=== PATIENT | male | born 1975 | race Hispanic/Latino ===

== ENCOUNTER 2019-06-24 04:27 | Emergency (ER) | payer BC, MEDICARE ==
[2019-06-24 05:16] LABS: #Eosinphils 0.2 thou/uL (0.0-0.7); #Lymphocytes 2.1 thou/uL (1.20-3.40); #Monocytes 0.6 thou/uL (0.11-0.59); #Neutrophils 3.7 thou/uL (1.40-6.50); %Basophils 0.7 % (0.0-1.0); %Eosinophils 3.1 % (0.0-10.0); %Lymphocytes 32.1 % (21.0-51.0); %Monocytes 8.4 % (0.0-10.0); %Neutrophils 55.7 % (42.0-75.0); Hemoglobin 13.9 g/dL (14.0-18.0); Mean Corpuscular HGB CONC 33.6 g/dL (32.0-36.0); Mean Corpuscular Hemoglobin 31.6 pg (27.0-31.0); Mean Corpuscular Volume 94.1 fL (78.0-98.0); Mean Platelet Volume 7.6 fL (7.4-10.4); Platelet Count 219 thou/uL (130-400); RBC Distribution Width 11.3 % (11.5-14.5); Red Blood Cell (RBC) Count 4.41 mill/uL (4.70-6.10); White Blood Cell (WBC) Count 6.6 thou/uL (4.8-10.8)
[2019-06-24 05:29] LABS: ALT (SGPT) 53 U/L (8-55); AST (SGOT) 34 U/L (5-34); Albumin 4.2 g/dL (3.5-5.0); Alkaline Phosphatase 74 U/L (40-110); Anion Gap 13 mmol/L (10-20); BUN (Urea Nitrogen) 15 mg/dL (8.9-20.6); Bilirubin, Total 0.3 mg/dL (0.2-1.2); Calc. Creatinine Clearance 0 mL/min (70-130); Calcium 9.1 mg/dL (7.8-10.44); Carbon Dioxide 25 mmol/L (22-29); Chloride 106 mmol/L (98-107); Estimated GFR-MDRD 84; Globulin 2.6 g/dL (2.4-3.5); Glucose 105 mg/dL (70-105); Protein, Total 6.8 g/dL (6.0-8.3); Sodium 140 mmol/L (136-145)
--- NOTE | 2019-06-24 08:11 | RAD ---
PORTABLE CHEST: Date: 06/24/19 An AP portable film at 0504 hours is compared with the 06/18/12 study. The heart remains normal in size and the lungs are clear. There is no infiltrate, effusion, or vascul ar congestion. Mediastinum appears normal. IMPRESSION: No acute thoracic findings. POS: HOME
== END 2019-06-24 05:54 | disposition home or self-care (01) ==
LOC: BURERS 04:27
DX: M25.511 Pain in right shoulder (principal); I10 Essential (primary) hypertension; Z79.899 Other long term (current) drug therapy
CPT/HCPCS: 36415; 71045; 80053; 84484; 85025; 85379; 93005

== ENCOUNTER 2023-08-16 14:05 | Emergency (ER) | payer BC, SELFPAY ==
[2023-08-16 14:51] LABS: #Basophils 0.1 thou/uL (0.0-0.2); #Eosinphils 0.2 thou/uL (0.0-0.7); #Lymphocytes 1.8 thou/uL (1.20-3.40); #Monocytes 0.4 thou/uL (0.11-0.59); %Basophils 0.8 % (0.0-1.0); %Eosinophils 2.8 % (0.0-10.0); %Lymphocytes 27.3 % (21.0-51.0); %Monocytes 6.9 % (0.0-10.0); %Neutrophils 62.2 % (42.0-75.0); Hematocrit 44.9 % (42.0-52.0); Hemoglobin 15.1 g/dL (14.0-18.0); Mean Corpuscular HGB CONC 33.6 g/dL (32.0-36.0); Mean Corpuscular Hemoglobin 31.6 pg (27.0-31.0); Mean Corpuscular Volume 94.1 fl (78.0-98.0); Mean Platelet Volume 8.3 fL (7.4-10.4); Platelet Count 226 10x3/uL (130-400); RBC Distribution Width 10.8 % (11.5-14.5); Red Blood Cell (RBC) Count 4.77 mill/uL (4.70-6.10); White Blood Cell (WBC) Count 6.4 10x3/uL (4.8-10.8)
[2023-08-16] MEDS ORDERED: Metoclopramide HCl 10 MG/2 ML VIAL ONE (14:56)
[2023-08-16 15:03] LABS: ALT (SGPT) 30 U/L (8-55); AST (SGOT) 27 U/L (5-34); Albumin 4.5 g/dL (3.5-5.0); Alkaline Phosphatase 54 U/L (40-110); Anion Gap 14 mmol/L (10-20); BUN (Urea Nitrogen) 12 mg/dL (8.9-20.6); Bilirubin, Total 0.6 mg/dL (0.2-1.2); Calc. Creatinine Clearance 0 mL/min (70-130); Calcium 8.8 mg/dL (7.8-10.44); Carbon Dioxide 23 mmol/L (22-29); Chloride 104 mmol/L (98-107); Estimated GFR 95; Globulin 2.8 g/dL (2.4-3.5); Glucose 86 mg/dL (70-105); Potassium 3.9 mmol/L (3.5-5.1); Protein, Total 7.3 g/dL (6.0-8.3); Sodium 137 mmol/L (136-145)
[2023-08-16 15:04] LABS: Troponin I Less than 0.010 ng/mL (< 0.028)
[2023-08-16] MEDS ORDERED: Lorazepam 2 MG/ML VIAL ONE (15:06)
== END 2023-08-16 15:39 | disposition home or self-care (01) ==
LOC: BURERS 14:05
DX: I10 Essential (primary) hypertension (principal)
CPT/HCPCS: 80053; 84484; 85025; 93005; 96374; 96375; J2060; J2765